=== PATIENT | female | born 1950 | race Two or more races ===

== ENCOUNTER 2022-06-19 15:27 | Emergency (ER) | payer OTHER ==
[~2022-06-19] VITALS: Ht 154.9 cm; Wt 67.1 kg
[2022-06-19] MEDS ORDERED: SIMVASTATIN5 MG (16:19)
[2022-06-19] MEDS ORDERED: AMLODIPINE-OLM1 EAC2 PO (16:19)
[2022-06-19] MEDS ORDERED: MEDROLPACK PO (17:48)
== END 2022-06-19 17:56 | disposition home or self-care (01) ==
LOC: ER 15:27
DX: M79.671 Pain in right foot (principal)